=== PATIENT | female | born 1955 | race Caucasian/White ===

== ENCOUNTER 2017-10-24 10:14 | Day surgery (SDC) | payer BC ==
[~2017-10-24] VITALS: Ht 165.1 cm; Wt 45.7 kg
[2017-10-24] MEDS ORDERED: LACTATED RINGERS 1,000 ML IV SCH (10:55)
[2017-10-24] MEDS ORDERED: BUPR-173 PO (10:59)
[2017-10-24] MEDS ORDERED: TRAZADONE PO (10:59)
[2017-10-24] MEDS ORDERED: LEVO200T5 PO (10:59)
[2017-10-24 11:11] VITALS: BP 105/74
[2017-10-24] MEDS ORDERED: PROCHLORPERAZINE 5 MG/ML, 2ML IV PRN (11:30)
[2017-10-24] MEDS ORDERED: HYDROmorphone 1 MG/ML, 1ML IV PRN (11:30)
[2017-10-24] MEDS ORDERED: DIPHENHYDRAMINE 50 MG/ML, 1ML IVPush PRN (11:30)
[2017-10-24] MEDS ORDERED: hydrALAzine 20 MG/ML, 1ML IV PRN (11:30)
[2017-10-24] MEDS ORDERED: LABETALOL 5MG/ML, 20ML IV PRN (11:30)
[2017-10-24] MEDS ORDERED: FENTANYL PF 100 MCG/2ML IV PRN (11:30)
[2017-10-24] MEDS ORDERED: PROMETHAZINE 25 MG/ML, 1ML IV PRN (11:30)
[2017-10-24] MEDS ORDERED: SCOPOLAMINE PATCH, 1.5MG PATCH.TD72 TD ONE (13:03)
[2017-10-24] MEDS ORDERED: FENTANYL PF 100 MCG/2ML ONE (13:25)
[2017-10-24] MEDS ORDERED: SUCCINYLCHOLINE 20 MG/ML, 10ML ONE (13:48)
[2017-10-24] MEDS ORDERED: ROCURONIUM 10 MG/ML,10ML ONE (13:48)
[2017-10-24] MEDS ORDERED: CEFAZOLIN 1,000 MG ONE (14:04)
[2017-10-24] MEDS ORDERED: PROPOFOL 10 MG/ML, 20ML ONE (14:04)
[2017-10-24] MEDS ORDERED: ONDANSETRON 2MG/ML, 2ML ONE (14:04)
[2017-10-24] MEDS ORDERED: DEXAMETHASONE 4 MG/ML, 1ML ONE (14:04)
[2017-10-24] MEDS ORDERED: PROCHLORPERAZINE 5 MG/ML, 2ML ONE (14:40)
== END 2017-10-24 15:57 | disposition home or self-care (01) ==
LOC: OUT 10:14 → EDBD 13:45 → OUT 15:57
PROVIDERS: ATTEND Internal Medicine Geriatric Medicine
DX: K44.9 Diaphragmatic hernia without obstruction or gangrene (principal); K86.9 Disease of pancreas, unspecified; F41.9 Anxiety disorder, unspecified; E03.9 Hypothyroidism, unspecified; F32.9 Major depressive disorder, single episode, unspecified; Z87.39 Personal history of other diseases of the musculoskeletal system and connective tissue; Z83.49 Family history of other endocrine, nutritional and metabolic diseases; Z87.440 Personal history of urinary (tract) infections; Z90.49 Acquired absence of other specified parts of digestive tract; Z98.890 Other specified postprocedural states; Z87.891 Personal history of nicotine dependence
CPT/HCPCS: 43238; 88305; 93005; J0330; J0690; J0780; J1100; J2405; J2704; J3010; J7120